=== PATIENT | male | born 1965 | race Caucasian/White ===

== ENCOUNTER 2020-07-22 12:43 | Emergency (ER) | payer MEDICARE ==
[~2020-07-22] VITALS: Ht 182.9 cm; Wt 80.0 kg
[2020-07-22 13:06] VITALS: BP 138/77
== END 2020-07-22 13:46 | disposition home or self-care (01) ==
LOC: ED 12:43
DX: Z76.0 Encounter for issue of repeat prescription (principal); G89.29 Other chronic pain; M54.2 Cervicalgia; E11.9 Type 2 diabetes mellitus without complications